=== PATIENT | female | born 1995 | race Caucasian/White ===

== ENCOUNTER 2018-09-15 18:03 | Emergency (ER) | payer OTHER, SELFPAY ==
[2018-09-15 18:06] VITALS: BP 116/71; PULSE 84; RESP 20; TEMP 37.1; O2SAT 100; BMI 25.0
--- NOTE | 2018-09-15 19:32 | ED.FEMALEGU ---
HPI - Female Genitourinary General Chief complaint: Abdominal Pain Stated complaint: States kidney infection Time Seen by Provider: 09/15/18 19:31 Source: patient Mode of arrival: ambulatory Limitations: no limitations History of Present Illness HPI Narrative: This is a 23-year-old female comes to the emergency department with complaint of hematuria. Patient states a month ago she was seen at the hospital, she was treated with oral antibiotics and told she had a kidney infection. She states her symptoms resolved but she started to have symptoms again. She states they are not as strong this time. She has had some intermittent flank pain on both sides as well as suprapubic pressure. She has dysuria, frequency and urgency. She has noticed blood in her urine she has not noticed any vaginal bleeding or blood on her underwear. She does not remember what antibiotic she was treated with. She did take in its entirety and finished about a week ago. She has not had any fevers, she has had some nausea but no vomiting. She was quite constipated when on the medications for the UTI initially but has been having normal bowel movements since. No vaginal discharge. Patient denies any other medical history, no prior surgical history. She does smoke, occasionally drinks alcohol denies illicit. Related Data Previous Rx's Medication Instructions Recorded sulfamethoxazole-trimethoprim 1 tab PO BID #14 tab 09/15/18 [Bactrim DS] Allergies Allergy/AdvReac Type Severity Reaction Status Date / Time No Known Drug Allergies Allergy Verified 09/15/18 18:10 Review of Systems Review of Systems All systems reviewed & are unremarkable except as noted in HPI and below Constitutional Denies chills, Denies fever(s) and Denies lethargy Gastrointestinal Gastrointestinal: Reports abdominal pain (suprapubic), Reports melena, Denies change in bowel habits, Denies constipation, Denies diarrhea, Reports nausea and Denies vomiting Genitourinary Denies abnormal vaginal bleeding, Reports urinary frequency, Reports dysuria, Reports pelvic pain, Reports flank pain, Denies urinary incontinence, Reports urinary urgency and Denies vaginal discharge [facility] Medical History Kidney infection (Acute) Social History Smoking Status: Current every day smoker Exam Narrative Exam Narrative: GENERAL: Alert and oriented x three, Well-nourished, well-appearing female in mild distress. HEENT: Head normocephalic, atraumatic, EOMI, pupils reactive, face symmetric, moist mucous membranes NECK: Supple, full range of motion CARDIOVASCULAR: Regular rate and rhythm without murmurs, rubs or gallops. RESPIRATORY: Breath sounds equal bilaterally, no wheezes rales or rhonchi. ABDOMEN: Soft, nontender. Normoactive bowel sounds all 4 quadrants. No guarding or rebound, rigidity, no mass : No CVA tenderness EXTREMITIES: Normal range of motion, no clubbing or edema. Neurovascularly intact NEUROLOGICAL: Cranial nerves II through XII grossly intact. Moving all extremities SKIN: Warm, dry, no petechiae, no rashes or lesions. Initial Vital Signs Initial Vital Signs: Vital Signs Temperature 98.7 F 09/15/18 18:06 Pulse Rate 84 09/15/18 18:06 Respiratory Rate 20 09/15/18 18:06 Blood Pressure 116/71 09/15/18 18:06 Pulse Oximetry 100 09/15/18 18:06 Course Orders Ordered: ED Orders 09/15/18 19:31 US renal complete Stat 09/15/18 19:50 Complete Blood Count AUTO DIFF Stat Comprehensive Metabolic Panel Stat Lipase Stat Partial Thromboplastin Time Stat Prothrombin Time INR Stat Discontinued Medications Nitrofurantoin Macrocrystals (Macrobid 100 Mg Capsule) 100 mg PO NOW ONE Stop: 09/15/18 20:36 Phenazopyridine HCl (Pyridium 100mg Prepack) 1 bottle MISC SEEINSTR ONE Stop: 09/15/18 20:36 Vital Signs - 8 hr 09/15/18 20:38 Pulse Rate 71 Respiratory Rate 15 Blood Pressure [Left Arm] 103/69 Pulse Oximetry 100 MDM - Female Genitourinary Lab Data Attestation: I reviewed the patient's lab results. Result diagrams: 09/15/18 19:50 09/15/18 19:50 Lab Results 09/15/18 09/15/18 09/15/18 Range/Units 19:50 19:50 19:50 WBC 10.9 (4.5-11.0) X10^3/uL RBC 4.28 (4.0-5.2) X10^6/uL Hgb 14.1 (12.0-16.0) g/dL Hct 40.9 (36-46) % MCV 95.5 (80-100) fL MCH 33.1 (26-34) PG MCHC 34.6 (30-36) % RDW 12.3 (11.6-14.8) % Plt Count 207 (150-400) X10^3/uL Neut % (Auto) 62.9 (50-75) % Lymph % (Auto) 26.6 (25-40) % [place] % (Auto) 8.9 (3-14) % Eos % (Auto) 1.1 L (2-4) % Baso % (Auto) 0.5 (0-2) % Neut # (Auto) 6900 H (0850-2992) /uL PT 12.0 (10.1-12.7) SECONDS INR 1.1 (0.9-1.3) APTT 29 (26.4-36.2) SECONDS Sodium 143 (137-145) mmol/L Potassium 3.3 L (3.4-5.1) mmol/L Chloride 106 (98-107) mmol/L Carbon Dioxide 25 (22-32) mmol/L BUN 17 (7-17) mg/dL Creatinine 0.90 (0.52-1.04) mg/dL Estimated GFR > 60.0 (>60) mL/min BUN/Creatinine Ratio 18.9 (6-22) Glucose 86 (70-100) mg/dL Calcium 9.0 (8.4-10.2) mg/dL Total Bilirubin 0.5 (0.2-1.3) mg/dL AST 26 (14-36) IU/L ALT 34 (9-52) IU/L Alkaline Phosphatase 53 (38-126) U/L Total Protein 6.9 (6.3-8.2) g/dL Albumin 4.3 (3.5-5.0) g/dL Globulin 2.6 (1.7-4.1) g/dL Albumin/Globulin Ratio 1.7 (1.0-2.8) Lipase 128 (23-300) U/L Point of Care Testing Test Results Negative Urine Dip Bedside Urine Glucose Negative Bedside Urine Bilirubin - Negative Bedside Urine Ketone - Negative Urine Specific [place] 1.030 Bedside Urine Occult Blood +++ Bedside Urine pH 6.0 Bedside Urine Protein ++ 100 Bedside Urine Urobilinogen - Negative Bedside Urine Nitrite - Negative Bedside Urine Leukocytes ++ 125 Esterase Imaging Data renal US: Radiologist's impression: [address] [address] Ultrasound Report Signed Patient: Gill Wong PMR#: [id number] : 1995Acct:[id number] Age/Sex: 23 / FDate of Service: 09/15/18 Loc: ED Accession Number: [id number] Procedure: US renal complete Ordering Provider: Poorinma Perry D.O. PROCEDURE: US RENAL COMPLETE INDICATIONS: HEMATURIA; RECENT UTI TECHNIQUE: Real-time scanning was performed of the kidneys and bladder, with image documentation. COMPARISON: None. FINDINGS: Kidneys: Kidneys are normal in size. Right kidney measures 9.9 cm long; left kidney measures 9.4 cm long. Right renal cortical thickness is 1.6 cm; left renal cortical thickness is 2.4 cm. Renal cortical echotexture is normal. No hydronephrosis or nephrolithiasis. No suspicious solid mass lesions. Bladder: Bladder could not be identified on this exam, likely obscured by overlying bowel gas or inadequately distended. IMPRESSION: #1. No hydronephrosis or nephrolithiasis identified. #2. Bladder could not be evaluated on this exam and was likely either inadequately distended obscured by overlying bowel gas. Dictated by: Tanvir Mensah M.D. on 09/15/2018 at 20:48 Approved by: Tanvir Mensah M.D. on 09/15/2018 at 20:51 MDM Narrative Medical decision making narrative: Urine shows leukocyte esterase, sent for microscopy. With patient's recurrent symptoms and recent renal /kidney infection attempting to get records to see what antibiotic she was on. Plan to start oral antibiotics, CBC, BMP are ordered she has been having hematuria as well as a renal ultrasound to make sure she does not have a severe pyelonephritis or other symptoms. Records obtained and patient was on Cipro, was going to cover with macrobid for UTI but patient states she has actually had prior to Cipro. It was the 2nd abx. changed to Bactrim, pyridium prepack given. Plan for f/u. Discussed reasons to return. Discharge Plan Departure Patient Disposition: Home Clinical Impression: UTI (urinary tract infection) Discharge Date/Time: 09/15/18 21:50 Interventions: ED Discharge Assessment Last Done: 09/15/18 21:51 Instructions: DI for Urinary Tract Infection (UTI) Activity Restrictions/Additional Instructions: Follow-up with primary care in the next 3-5 days for recheck, call for an appointment. Return to the emergency department for fevers, persistent vomiting, rapidly increasing back or flank pain, if you are unable to urinate, or of other new or concerning symptoms. Take antibiotics until they are completely gone. You may use Pyridium every 6-8 hours as needed for urinary symptoms. This medication will cause your urine to be bright orange. Prescriptions: New sulfamethoxazole-trimethoprim [Bactrim DS] 800-160 mg tablet 1 tab PO BID Qty: 14 RF: 0
--- NOTE | 2018-09-15 19:37 | ED_ITS ---
HPI - Female Genitourinary General Chief complaint: Abdominal Pain Stated complaint: States kidney infection Time Seen by Provider: 09/15/18 19:31 Source: patient Mode of arrival: ambulatory Limitations: no limitations History of Present Illness HPI Narrative: This is a 23-year-old female comes to the emergency department with complaint of hematuria. Patient states a month ago she was seen at the hospital, she was treated with oral antibiotics and told she had a kidney infection. She states her symptoms resolved but she started to have symptoms again. She states they are not as strong this time. She has had some intermittent flank pain on both sides as well as suprapubic pressure. She has dysuria, frequency and urgency. She has noticed blood in her urine she has not noticed any vaginal bleeding or blood on her underwear. She does not remember what antibiotic she was treated with. She did take in its entirety and finished about a week ago. She has not had any fevers, she has had some nausea but no vomiting. She was quite constipated when on the medications for the UTI initially but has been having normal bowel movements since. No vaginal discharge. Patient denies any other medical history, no prior surgical history. She does smoke, occasionally drinks alcohol denies illicit. Related Data Previous Rx's Medication Instructions Recorded sulfamethoxazole-trimethoprim 1 tab PO BID #14 tab 09/15/18 [Bactrim DS] Allergies Allergy/AdvReac Type Severity Reaction Status Date / Time No Known Drug Allergies Allergy Verified 09/15/18 18:10 Review of Systems Review of Systems All systems reviewed & are unremarkable except as noted in HPI and below Constitutional Denies chills, Denies fever(s) and Denies lethargy Gastrointestinal Gastrointestinal: Reports abdominal pain (suprapubic), Reports melena, Denies change in bowel habits, Denies constipation, Denies diarrhea, Reports nausea and Denies vomiting Genitourinary Denies abnormal vaginal bleeding, Reports urinary frequency, Reports dysuria, Reports pelvic pain, Reports flank pain, Denies urinary incontinence, Reports urinary urgency and Denies vaginal discharge [facility] Medical History Kidney infection (Acute) Social History Smoking Status: Current every day smoker Exam Narrative Exam Narrative: GENERAL: Alert and oriented x three, Well-nourished, well- appearing female in mild distress. HEENT: Head normocephalic, atraumatic, EOMI, pupils reactive, face symmetric, moist mucous membranes NECK: Supple, full range of motion CARDIOVASCULAR: Regular rate and rhythm without murmurs, rubs or gallops. RESPIRATORY: Breath sounds equal bilaterally, no wheezes rales or rhonchi. ABDOMEN: Soft, nontender. Normoactive bowel sounds all 4 quadrants. No guarding or rebound, rigidity, no mass : No CVA tenderness EXTREMITIES: Normal range of motion, no clubbing or edema. Neurovascularly intact NEUROLOGICAL: Cranial nerves II through XII grossly intact. Moving all extremities SKIN: Warm, dry, no petechiae, no rashes or lesions. Initial Vital Signs Initial Vital Signs: Vital Signs Temperature 98.7 F 09/15/18 18:06 Pulse Rate 84 09/15/18 18:06 Respiratory Rate 20 09/15/18 18:06 Blood Pressure 116/71 09/15/18 18:06 Pulse Oximetry 100 09/15/18 18:06 Course Orders Ordered: ED Orders 09/15/18 19:31 US renal complete Stat 09/15/18 19:50 Complete Blood Count AUTO DIFF Stat Comprehensive Metabolic Panel Stat Lipase Stat Partial Thromboplastin Time Stat Prothrombin Time INR Stat Discontinued Medications Nitrofurantoin Macrocrystals (Macrobid 100 Mg Capsule) 100 mg PO NOW ONE Stop: 09/15/18 20:36 Phenazopyridine HCl (Pyridium 100mg Prepack) 1 bottle MISC SEEINSTR ONE Stop: 09/15/18 20:36 Vital Signs - 8 hr 09/15/18 20:38 Pulse Rate 71 Respiratory Rate 15 Blood Pressure [Left Arm] 103/69 Pulse Oximetry 100 MDM - Female Genitourinary Lab Data Attestation: I reviewed the patient's lab results. Result diagrams: 09/15/18 19:50 09/15/18 19:50 Lab Results 09/15/18 09/15/18 09/15/18 Range/Units 19:50 19:50 19:50 WBC 10.9 (4.5-11.0) X10^3/uL RBC 4.28 (4.0-5.2) X10^6/uL Hgb 14.1 (12.0-16.0) g/dL Hct 40.9 (36-46) % MCV 95.5 (80-100) fL MCH 33.1 (26-34) PG MCHC 34.6 (30-36) % RDW 12.3 (11.6-14.8) % Plt Count 207 (150-400) X10^3/uL Neut % (Auto) 62.9 (50-75) % Lymph % (Auto) 26.6 (25-40) % [place] % (Auto) 8.9 (3-14) % Eos % (Auto) 1.1 L (2-4) % Baso % (Auto) 0.5 (0-2) % Neut # (Auto) 6900 H (0050-1949) /uL PT 12.0 (10.1-12.7) SECONDS INR 1.1 (0.9-1.3) APTT 29 (26.4-36.2) SECONDS Sodium 143 (137-145) mmol/L Potassium 3.3 L (3.4-5.1) mmol/L Chloride 106 (98-107) mmol/L Carbon Dioxide 25 (22-32) mmol/L BUN 17 (7-17) mg/dL Creatinine 0.90 (0.52-1.04) mg/dL Estimated GFR > 60.0 (>60) mL/min BUN/Creatinine Ratio 18.9 (6-22) Glucose 86 (70-100) mg/dL Calcium 9.0 (8.4-10.2) mg/dL Total Bilirubin 0.5 (0.2-1.3) mg/dL AST 26 (14-36) IU/L ALT 34 (9-52) IU/L Alkaline Phosphatase 53 (38-126) U/L Total Protein 6.9 (6.3-8.2) g/dL Albumin 4.3 (3.5-5.0) g/dL Globulin 2.6 (1.7-4.1) g/dL Albumin/Globulin Ratio 1.7 (1.0-2.8) Lipase 128 (23-300) U/L Point of Care Testing Test Results Negative Urine Dip Bedside Urine Glucose Negative Bedside Urine Bilirubin - Negative Bedside Urine Ketone - Negative Urine Specific [place] 1.030 Bedside Urine Occult Blood +++ Bedside Urine pH 6.0 Bedside Urine Protein ++ 100 Bedside Urine Urobilinogen - Negative Bedside Urine Nitrite - Negative Bedside Urine Leukocytes ++ 125 Esterase Imaging Data renal US: Radiologist's impression: [address] [address] Ultrasound Report Signed Patient: Gill Wong PMR#: [id number] : 1995Acct:[id number] Age/Sex: 23 / FDate of Service: 09/15/18 Loc: ED Accession Number: [id number] Procedure: US renal complete Ordering Provider: Poornima Perry D.O. PROCEDURE: US RENAL COMPLETE INDICATIONS: HEMATURIA; RECENT UTI TECHNIQUE: Real-time scanning was performed of the kidneys and bladder, with image documentation. COMPARISON: None. FINDINGS: Kidneys: Kidneys are normal in size. Right kidney measures 9.9 cm long; left kidney measures 9.4 cm long. Right renal cortical thickness is 1.6 cm; left renal cortical thickness is 2.4 cm. Renal cortical echotexture is normal. No hydronephrosis or nephrolithiasis. No suspicious solid mass lesions. Bladder: Bladder could not be identified on this exam, likely obscured by overlying bowel gas or inadequately distended. IMPRESSION: #1. No hydronephrosis or nephrolithiasis identified. #2. Bladder could not be evaluated on this exam and was likely either inadequately distended obscured by overlying bowel gas. Dictated by: Tanvir Mensah M.D. on 09/15/2018 at 20:48 Approved by: Tanvir Mensah M.D. on 09/15/2018 at 20:51 MDM Narrative Medical decision making narrative: Urine shows leukocyte esterase, sent for microscopy. With patient's recurrent symptoms and recent renal /kidney infection attempting to get records to see what antibiotic she was on. Plan to start oral antibiotics, CBC, BMP are ordered she has been having hematuria as well as a renal ultrasound to make sure she does not have a severe pyelonephritis or other symptoms. Records obtained and patient was on Cipro, was going to cover with macrobid for UTI but patient states she has actually had prior to Cipro. It was the 2nd abx. changed to Bactrim, pyridium prepack given. Plan for f/u. Discussed reasons to return. Discharge Plan Departure Patient Disposition: Home Clinical Impression: UTI (urinary tract infection) Discharge Date/Time: 09/15/18 21:50 Interventions: ED Discharge Assessment Last Done: 09/15/18 21:51 Instructions: DI for Urinary Tract Infection (UTI) Activity Restrictions/Additional Instructions: Follow-up with primary care in the next 3-5 days for recheck, call for an appointment. Return to the emergency department for fevers, persistent vomiting, rapidly increasing back or flank pain, if you are unable to urinate, or of other new or concerning symptoms. Take antibiotics until they are completely gone. You may use Pyridium every 6- 8 hours as needed for urinary symptoms. This medication will cause your urine to be bright orange. Prescriptions: New sulfamethoxazole-trimethoprim [Bactrim DS] 800-160 mg tablet 1 tab PO BID Qty: 14 RF: 0
[2018-09-15 20:03] LABS: Add Manual Diff / Slide Review NO; Basophils Percent Auto 0.5 % (0-2); Eosinophils Percent Auto 1.1 % (2-4); Hematocrit 40.9 % (36-46); Hemoglobin 14.1 g/dL (12.0-16.0); Lymphocytes Percent Auto 26.6 % (25-40); Mean Corpuscular HGB Conc 34.6 % (30-36); Mean Corpuscular Hemoglobin 33.1 PG (26-34); Mean Corpuscular Volume 95.5 fL (80-100); Monocytes Percent Auto 8.9 % (3-14); Neutrophils Absolute Auto 6900 /uL (3000-5900); Neutrophils Percent Auto 62.9 % (50-75); Platelet Count 207 X10^3/uL (150-400); Red Blood Cell Count 4.28 X10^6/uL (4.0-5.2); Red Cell Distribution Width 12.3 % (11.6-14.8); White Blood Cell Count 10.9 X10^3/uL (4.5-11.0)
[2018-09-15 20:10] LABS: INR 1.1 (0.9-1.3)
[2018-09-15 20:13] LABS: PTT Partial Thromboplastin Tim 29 SECONDS (26.4-36.2)
[2018-09-15 20:16] LABS: Alanine Aminotransferase 34 IU/L (9-52); Albumin 4.3 g/dL (3.5-5.0); Albumin Globulin Ratio 1.7 (1.0-2.8); Alkaline Phosphatase 53 U/L (38-126); Aspartate Aminotransferase 26 IU/L (14-36); BUN Creatinine Ratio 18.9 (6-22); Bilirubin Total 0.5 mg/dL (0.2-1.3); Blood Urea Nitrogen 17 mg/dL (7-17); Carbon Dioxide 25 mmol/L (22-32); Chloride 106 mmol/L (98-107); Estimated Glomerular Filt Rate > 60.0 mL/min (>60); Globulin 2.6 g/dL (1.7-4.1); Glucose 86 mg/dL (70-100); HEMOLYSIS < 15 (0-50); Lipase 128 U/L (23-300); Potassium 3.3 mmol/L (3.4-5.1); Sodium 143 mmol/L (137-145); Total Protein 6.9 g/dL (6.3-8.2)
[2018-09-15 20:38] VITALS: BP 103/69; PULSE 71; RESP 15; O2SAT 100
== END 2018-09-15 21:50 | disposition home or self-care (01) ==
PROVIDERS: Emergency Medicine; Emergency Provider Emergency Medicine
DX: N39.0 Urinary tract infection, site not specified (principal)
CPT/HCPCS: 76770; 80053; 81003; 81025; 83690; 85025; 85610; 85730; 99282; 99284

== ENCOUNTER 2019-10-26 19:40 | Emergency (ER) | payer OTHER, SELFPAY ==
[2019-10-26 19:45] VITALS: BP 124/74; PULSE 68; RESP 20; TEMP 36.7; O2SAT 99; BMI 28.3
--- NOTE | 2019-10-26 19:52 | DI.US.S_ITS ---
PROCEDURE: US OB <= 14 WEEKS FETUS INDICATIONS: SPOTTING OUTSIDE/PRIOR DATING DATA: Last menstrual period (LMP): 08/27/19. LMP-based estimated date of delivery (CESAR): 06/02/20. First dating scan (date and location): [facility], 10/26/19. Estimated date of delivery (CESAR) from first dating scan: 06/06/20. TECHNIQUE: Real-time scanning was performed of the fetus and maternal pelvic organs, with image documentation. COMPARISON: [facility], US, US RENAL COMPLETE, 09/15/2018, 19:40. FINDINGS: Embryo: There is a single intrauterine gestation. heart rate measured at 171 beats per minute. Babbitt-rump length measured 1.6 cm, for a calculated gestational age of 8 weeks zero days. Measurement variability in dating: +/- 4 weeks by LMP, +/- 7 days by mean sac diameter (use before 6 weeks gestation if crown-rump length not able to be measured), +/- 5 days by crown-rump length (up to 8 weeks 6 days gestation), +/- 7 days by crown-rump length (up to 13 weeks 6 days gestation). Maternal organs: The right ovary was not seen on this exam, likely obscured by overlying structures and bowel gas. The left ovary measures 3.1 x 2.7 x 2.2 cm. There is a 1.7 x 1.6 x 1.3 cm heterogeneously hypoechoic structure within the left ovary which is poorly visualized on this exam but may represent a corpus luteum cyst. Limited images through the kidneys demonstrate no hydronephrosis. IMPRESSION: 1. Single intrauterine gestation with heart rate measured at 171 beats per minute. Babbitt-rump length measures 1.6 cm, for calculated gestational age of 8 weeks zero days. 2. 1.7 cm heterogeneously hypoechoic structure within the left ovary is poorly visualized on this exam but may represent a corpus luteum cyst. Attention on followup pelvic/ ultrasounds is suggested. Dictated by: Tanvir Mensah M.D. on 10/26/2019 at 21:03 Approved by: Tanvir Mensah M.D. on 10/26/2019 at 21:10
[2019-10-26 20:23] LABS: Add Manual Diff / Slide Review NO; Basophils Absolute Auto 0 /uL (0-100); Basophils Percent Auto 0.4 % (0-2); Eosinophils Absolute Auto 100 /uL (0-450); Eosinophils Percent Auto 1.3 % (2-4); Hematocrit 38.2 % (36-46); Hemoglobin 13.1 g/dL (12.0-16.0); Lymphocytes Absolute Auto 2100 /uL (1100-4500); Lymphocytes Percent Auto 24.6 % (25-40); Mean Corpuscular HGB Conc 34.3 % (30-36); Mean Corpuscular Hemoglobin 32.8 PG (26-34); Mean Corpuscular Volume 95.4 fL (80-100); Monocytes Absolute Auto 1000 /uL (0-900); Monocytes Percent Auto 12.1 % (3-14); Neutrophils Absolute Auto 5200 /uL (1500-7000); Neutrophils Percent Auto 61.6 % (50-75); Platelet Count 188 X10^3/uL (150-400); Red Blood Cell Count 4.01 X10^6/uL (4.0-5.2); Red Cell Distribution Width 11.7 % (11.6-14.8); White Blood Cell Count 8.4 X10^3/uL (4.5-11.0)
[2019-10-26 20:38] LABS: Alanine Aminotransferase 101 IU/L (<35); Albumin Globulin Ratio 1.5 (1.0-2.8); Alkaline Phosphatase 61 U/L (38-126); Aspartate Aminotransferase 50 IU/L (14-36); BUN Creatinine Ratio 17.1 (6-22); Bilirubin Total 0.2 mg/dL (0.2-1.3); Blood Urea Nitrogen 12 mg/dL (7-17); Calcium 9.4 mg/dL (8.4-10.2); Carbon Dioxide 23 mmol/L (22-32); Chloride 102 mmol/L (98-107); Estimated Glomerular Filt Rate > 60.0 mL/min (>60); Globulin 2.7 g/dL (1.7-4.1); Glucose 88 mg/dL (70-100); HEMOLYSIS < 15 (0-50); Potassium 3.8 mmol/L (3.4-5.1); Sodium 137 mmol/L (137-145); Total Protein 6.7 g/dL (6.3-8.2)
--- NOTE | 2019-10-26 20:56 | ED.PREGNANCY ---
HPI - <DOUGIE Yoder - Last Filed: 10/26/19 21:26> General Chief complaint: Vaginal Bleeding Stated complaint: states preg, 8 1/2 wks, bleeding Time Seen by Provider: 10/26/19 19:43 Source: patient and family Mode of arrival: Ambulatory Limitations: no limitations History of Present Illness HPI Narrative: The patient is a 24-year-old female nonsmoker with history of urinary tract infections who presents with a chief complaint of 2 episodes of vaginal bleeding today. She states she is 8'1/2weeks . She states that she has had cramping throughout her , denies dysuria urgency or frequency. She states that she had a few drops of blood when she urinated earlier today and had some in her underwear at another point. She denies any fevers, abnormal nausea vomiting or diarrhea. She states her last bowel movement today was normal. No concern for sexually transmitted infections. No vaginal itching or complaints. Related Data Previous Rx's Medication Instructions Recorded sulfamethoxazole-trimethoprim 1 tab PO BID #14 tab 09/15/18 [Bactrim DS] Allergies Allergy/AdvReac Type Severity Reaction Status Date / Time No Known Drug Allergies Allergy Verified 09/15/18 18:10 Review of Systems <DOUGIE Yoder - Last Filed: 10/26/19 21:26> Review of Systems Narrative: GENERAL: Denies chills, fatigue, malaise, fever, sweats. HEENT: Denies sinus pain, ear pain, sore throat, difficulty swallowing, dizziness. RESPIRATORY: Denies dyspnea, cough, wheezing, hemoptysis, sputum. CARDIOVASCULAR: Denies chest pain, palpitations, orthopnea, edema, GASTROINTESTINAL: See HPI : See HPI MUSCULOSKELETAL: denies weakness, joint pain, or bony pain SKIN: Denies rash, skin lesions, or other NEUROLOGIC: Denies weakness, headache, numbness, change in speech, confusion, seizures, incoordination. PSYCHIATRIC: No concerning psychosocial issues. 12 point review of systems is negative except for those stated above Exam <DOUGIE Yoder - Last Filed: 10/26/19 21:26> Narrative Exam Narrative: GENERAL: This is a well-nourished, well-developed patient, in no acute distress HEAD: Atraumatic. Normocephalic. No temporal or scalp tenderness. EYES: Pupils equal round and reactive. Extraocular motions intact. No scleral icterus. No injection or drainage. ENT: Nose without bleeding, purulent drainage or septal hematoma. Throat without erythema, tonsillar hypertrophy or exudate. Uvula midline. Airway patent. NECK: Trachea midline. No JVD or lymphadenopathy. Supple, nontender, no meningeal signs. CARDIOVASCULAR: Regular rate and rhythm without murmurs, gallops, or rubs. RESPIRATORY: Clear to auscultation. Breath sounds equal bilaterally. No wheezes, rales, or rhonchi. GASTROINTESTINAL: Abdomen soft, diffuse suprapubic tenderness to palpation, nondistended. No hepato-splenomegaly, or palpable masses. No guarding. EXTREMITIES: No clubbing, cyanosis, or edema. No joint tenderness, effusion, or edema noted. BACK: Nontender without deformity or crepitance. No flank tenderness. NEURO: AOx3. SKIN: No rash or erythema on visible skin Initial Vital Signs Initial Vital Signs: Vital Signs Temperature 98.1 F 10/26/19 19:45 Pulse Rate 68 10/26/19 19:45 Respiratory Rate 20 10/26/19 19:45 Blood Pressure 124/74 10/26/19 19:45 Pulse Oximetry 99 10/26/19 19:45 <Alessandro Welsh DO - Last Filed: 10/26/19 21:45> Initial Vital Signs Initial Vital Signs: Vital Signs Temperature 98.1 F 10/26/19 19:45 Pulse Rate 68 10/26/19 19:45 Respiratory Rate 20 10/26/19 19:45 Blood Pressure 124/74 10/26/19 19:45 Pulse Oximetry 99 10/26/19 19:45 Course <DOUGIE Yoder - Last Filed: 10/26/19 21:26> Orders Ordered: ED Orders 10/26/19 19:52 US OB <= 14 weeks fetus Stat 10/26/19 20:14 ABO RH Type Stat Complete Blood Count AUTO DIFF Stat Comprehensive Metabolic Panel Stat HCG Quantitative Stat Vital Signs Vital signs: Vital Signs - 8 hr 10/26/19 19:45 10/26/19 21:13 Temperature 98.1 F Pulse Rate 68 63 Respiratory Rate 20 18 Blood Pressure 124/74 Blood Pressure [Right Arm] 94/44 L Pulse Oximetry 99 99 <Alessandro Welsh DO - Last Filed: 10/26/19 21:45> Orders Ordered: ED Orders 10/26/19 19:52 US OB <= 14 weeks fetus Stat 10/26/19 20:14 ABO RH Type Stat Complete Blood Count AUTO DIFF Stat Comprehensive Metabolic Panel Stat HCG Quantitative Stat Vital Signs Vital signs: Vital Signs - 8 hr 10/26/19 19:45 10/26/19 21:13 Temperature 98.1 F Pulse Rate 68 63 Respiratory Rate 20 18 Blood Pressure 124/74 Blood Pressure [Right Arm] 94/44 L Pulse Oximetry 99 99 MDM - OB/Uterine Contractions <RODRI YoderBC - Last Filed: 10/26/19 21:26> Lab Data Result diagrams: 10/26/19 20:14 10/26/19 20:14 Labs: Lab Results 10/26/19 10/26/19 10/26/19 Range/Units 20:14 20:14 20:14 WBC 8.4 (4.5-11.0) X10^3/uL RBC 4.01 (4.0-5.2) X10^6/uL Hgb 13.1 (12.0-16.0) g/dL Hct 38.2 (36-46) % MCV 95.4 (80-100) fL MCH 32.8 (26-34) PG MCHC 34.3 (30-36) % RDW 11.7 (11.6-14.8) % Plt Count 188 (150-400) X10^3/uL Neut % (Auto) 61.6 (50-75) % Lymph % (Auto) 24.6 L (25-40) % [place] % (Auto) 12.1 (3-14) % Eos % (Auto) 1.3 L (2-4) % Baso % (Auto) 0.4 (0-2) % Neut # (Auto) 5200 (9132-3284) /uL Lymph # (Auto) 2100 (9139-4290) /uL [place] # (Auto) 1000 H (0-900) /uL Eos # (Auto) 100 (0-450) /uL Baso # (Auto) 0 (0-100) /uL Sodium 137 (137-145) mmol/L Potassium 3.8 (3.4-5.1) mmol/L Chloride 102 (98-107) mmol/L Carbon Dioxide 23 (22-32) mmol/L BUN 12 (7-17) mg/dL Creatinine 0.70 (0.52-1.04) mg/dL Estimated GFR > 60.0 (>60) mL/min BUN/Creatinine Ratio 17.1 (6-22) Glucose 88 (70-100) mg/dL Calcium 9.4 (8.4-10.2) mg/dL Total Bilirubin 0.2 (0.2-1.3) mg/dL AST 50 H (14-36) IU/L ALT 101 H (<35) IU/L Alkaline Phosphatase 61 (38-126) U/L Total Protein 6.7 (6.3-8.2) g/dL Albumin 4.0 (3.5-5.0) g/dL Globulin 2.7 (1.7-4.1) g/dL Albumin/Globulin Ratio 1.5 (1.0-2.8) HCG, Quant 811104 mIU/mL Blood Type O Positive Point of Care Testing Test Results Positive Urine Dip Bedside Urine Glucose Negative Bedside Urine Bilirubin - Negative Bedside Urine Ketone - Negative Urine Specific [place] 1.015 Bedside Urine Occult Blood - Negative Bedside Urine pH 7.5 Bedside Urine Protein +/- 15 Bedside Urine Urobilinogen - Negative Bedside Urine Nitrite - Negative Bedside Urine Leukocytes - Negative Esterase Imaging Data US - OB: Radiologist's Impression: Ultrasound Report Signed Patient: Gill Koroma PMR#: [id number] : 1995Acct:[id number] Age/Sex: 24 / FDate of Service: 10/26/19 Loc: ED Accession Number: [id number] Procedure: US OB <= 14 weeks fetus Ordering Provider: Poornima Carey [facility] PROCEDURE: US OB <= 14 WEEKS FETUS INDICATIONS: SPOTTING OUTSIDE/PRIOR DATING DATA: Last menstrual period (LMP): 08/27/19. LMP-based estimated date of delivery (CESAR): 06/02/20. First dating scan (date and location): [facility], 10/26/19. Estimated date of delivery (CESAR) from first dating scan: 06/06/20. TECHNIQUE: Real-time scanning was performed of the fetus and maternal pelvic organs, with image documentation. COMPARISON: [facility], , US RENAL COMPLETE, 09/15/2018, 19:40. FINDINGS: Embryo: There is a single intrauterine gestation. heart rate measured at 171 beats per minute. [place]-rump length measured 1.6 cm, for a calculated gestational age of 8 weeks zero days. Measurement variability in dating: +/- 4 weeks by LMP, +/- 7 days by mean sac diameter (use before 6 weeks gestation if crown-rump length not able to be measured), +/- 5 days by crown-rump length (up to 8 weeks 6 days gestation), +/- 7 days by crown-rump length (up to 13 weeks 6 days gestation). Maternal organs: The right ovary was not seen on this exam, likely obscured by overlying structures and bowel gas. The left ovary measures 3.1 x 2.7 x 2.2 cm. There is a 1.7 x 1.6 x 1.3 cm heterogeneously hypoechoic structure within the left ovary which is poorly visualized on this exam but may represent a corpus luteum cyst. Limited images through the kidneys demonstrate no hydronephrosis. IMPRESSION: 1. Single intrauterine gestation with heart rate measured at 171 beats per minute. [place]-rump length measures 1.6 cm, for calculated gestational age of 8 weeks zero days. 2. 1.7 cm heterogeneously hypoechoic structure within the left ovary is poorly visualized on this exam but may represent a corpus luteum cyst. Attention on followup pelvic/ ultrasounds is suggested. Dictated by: Tanvir Mensah M.D. on 10/26/2019 at 21:03 Approved by: Tanvir Mensah M.D. on 10/26/2019 at 21:10 [facility] Narrative Medical decision making narrative: The patient is a 24-year-old female who presents with a chief complaint of a few drops of blood in the toilet earlier today. Urine shows no sign of infection. Lab work is grossly normal. Patient appears well, ambulating without difficulties. Ultrasound shows single intrauterine gestation at 8 weeks with heart rate 171. I discussed at length with the patient the need for follow-up with primary care physician/OB. Discussed that she needs further lab work, to monitor for further bleeding etc. patient has no questions or concerns upon discharge and states understanding of return precautions as well as follow-up care. And discussed incidental finding of possible left-sided ovarian cyst and recommended PCP follow-up for this. <Alessandro Welsh, DO - Last Filed: 10/26/19 21:45> Lab Data Labs: Lab Results 10/26/19 10/26/19 10/26/19 Range/Units 20:14 20:14 20:14 WBC 8.4 (4.5-11.0) X10^3/uL RBC 4.01 (4.0-5.2) X10^6/uL Hgb 13.1 (12.0-16.0) g/dL Hct 38.2 (36-46) % MCV 95.4 (80-100) fL MCH 32.8 (26-34) PG MCHC 34.3 (30-36) % RDW 11.7 (11.6-14.8) % Plt Count 188 (150-400) X10^3/uL Neut % (Auto) 61.6 (50-75) % Lymph % (Auto) 24.6 L (25-40) % [place] % (Auto) 12.1 (3-14) % Eos % (Auto) 1.3 L (2-4) % Baso % (Auto) 0.4 (0-2) % Neut # (Auto) 5200 (8899-1357) /uL Lymph # (Auto) 2100 (2288-2481) /uL [place] # (Auto) 1000 H (0-900) /uL Eos # (Auto) 100 (0-450) /uL Baso # (Auto) 0 (0-100) /uL Sodium 137 (137-145) mmol/L Potassium 3.8 (3.4-5.1) mmol/L Chloride 102 (98-107) mmol/L Carbon Dioxide 23 (22-32) mmol/L BUN 12 (7-17) mg/dL Creatinine 0.70 (0.52-1.04) mg/dL Estimated GFR > 60.0 (>60) mL/min BUN/Creatinine Ratio 17.1 (6-22) Glucose 88 (70-100) mg/dL Calcium 9.4 (8.4-10.2) mg/dL Total Bilirubin 0.2 (0.2-1.3) mg/dL AST 50 H (14-36) IU/L ALT 101 H (<35) IU/L Alkaline Phosphatase 61 (38-126) U/L Total Protein 6.7 (6.3-8.2) g/dL Albumin 4.0 (3.5-5.0) g/dL Globulin 2.7 (1.7-4.1) g/dL Albumin/Globulin Ratio 1.5 (1.0-2.8) HCG, Quant 689607 mIU/mL Blood Type O Positive Point of Care Testing Test Results Positive Urine Dip Bedside Urine Glucose Negative Bedside Urine Bilirubin - Negative Bedside Urine Ketone - Negative Urine Specific [place] 1.015 Bedside Urine Occult Blood - Negative Bedside Urine pH 7.5 Bedside Urine Protein +/- 15 Bedside Urine Urobilinogen - Negative Bedside Urine Nitrite - Negative Bedside Urine Leukocytes - Negative Esterase Discharge Plan Departure Patient Disposition: Home Clinical Impression: Vaginal bleeding affecting early , Miscarriage, threatened, early Discharge Date/Time: 10/26/19 21:29 Instructions: DI for Threatened , DI for Vaginal Bleeding During Activity Restrictions/Additional Instructions: Today your ultrasound looks good and your lab work came back well. Your urine shows no signs of infection Please follow-up with primary care provider in the next few days. Please come back to the emergency department for any acute concerns such as severe bleeding, passing out etcetera Prescriptions: No Action sulfamethoxazole-trimethoprim [Bactrim DS] 800-160 mg tablet 1 tab PO BID Qty: 14 RF: 0 Referrals: [facility] [place] [Provider Group] <Alessandro Welsh, DO - Last Filed: 10/26/19 21:45> Sign Out Provider Sign Out Attestation: Dr Welsh Co-Sign Statement: I was available for consultation during this patient's emergency department visit. This chart is signed by myself for administrative purposes only. I did not have direct contact with this patient during this visit. They were seen independently by the APC.
[2019-10-26 21:13] VITALS: BP 94/44; PULSE 63; RESP 18; O2SAT 99
[2019-10-26 21:19] LABS: HCG Quantitative /Beta subunit 108430 mIU/mL
== END 2019-10-26 21:29 | disposition home or self-care (01) ==
PROVIDERS: Emergency Provider Nurse Practitioner Family
DX: O20.0 Threatened abortion (principal); Z3A.08 8 weeks gestation of pregnancy
CPT/HCPCS: 36415; 76801; 76817; 80053; 81003; 81025; 84702; 85025; 86900; 86901; 99283; 99284